=== PATIENT | female | born 1970 | race Two or more races ===

== ENCOUNTER 2025-09-09 09:02 | Emergency (ER) | payer OTHER ==
[~2025-09-09] VITALS: Ht 157.5 cm; Wt 72.6 kg
[2025-09-09 09:54] LABS: PLATELET COUNT (AUTO) 238 K/uL (150-450); RED BLOOD CELL COUNT(AUTO) 4.53 MIL/uL (4.0-5.2); RED CELL DISTRIBUTION WIDTH 14.5 % (11.5-15.0); WHITE BLOOD COUNT (AUTO) 6.2 K/uL (4.3-11.0)
[2025-09-09 10:03] LABS: CALCIUM, SERUM 9.2 mg/dL (8.5-10.1); CREATININE 1.1 mg/dL (0.6-1.3); SODIUM SERUM 143 mmol/L (136-145); UREA NITROGEN, BLOOD 12 mg/dL (7-18)
[2025-09-09 10:09] LABS: ALCOHOL, BLOOD < 3 mg/dL (0-10); ASPARTATE AMINOTRANSFERASE 16 U/L (15-37); TOTAL PROTEIN, SERUM 6.9 g/dL (6.4-8.2)
[2025-09-09 11:20] VITALS: BP 133/75; TEMP 98; O2SAT 100
== END 2025-09-09 11:20 ==
LOC: ER 09:11
DX: S09.90XA Unspecified injury of head, initial encounter (principal); M79.602 Pain in left arm; M79.601 Pain in right arm; M54.2 Cervicalgia; Z02.89 Encounter for other administrative examinations; X58.XXXA Exposure to other specified factors, initial encounter; Y93.89 Activity, other specified; Y92.89 Other specified places as the place of occurrence of the external cause; Y99.8 Other external cause status
CPT/HCPCS: 99284; 71045; 72125; 70450; 85025; 80048; 80076; 36415; 84702; 80143; 80320; L0172; G0480